=== PATIENT | female | born 1970 | race Caucasian/White ===

== ENCOUNTER 2020-12-04 23:28 | Emergency (ER) | payer OTHER ==
[~2020-12-04] VITALS: Ht 175.3 cm; Wt 81.6 kg
[2020-12-04 23:40] VITALS: BP 127/57
== END 2020-12-05 00:30 | disposition home or self-care (01) ==
LOC: ER 23:31
DX: L08.9 Local infection of the skin and subcutaneous tissue, unspecified (principal); Z59.0 Homelessness; Z90.710 Acquired absence of both cervix and uterus; Z98.890 Other specified postprocedural states

== ENCOUNTER 2021-09-04 10:29 | Emergency (ER) | payer OTHER ==
[~2021-09-04] VITALS: Ht 175.3 cm; Wt 81.6 kg
--- NOTE | 2021-09-04 10:38 | NUR ---
CALLED IN ED WAITNG ROOM. NO RESPONSE.
[2021-09-04] MEDS ORDERED: IV NS 0.9% 1,000 ML BAG IV ONE (11:00)
[2021-09-04] MEDS ORDERED: KETOROLAC TROMETHAMINE INJ 30 MG/ML VIAL IV ONE (11:00)
[2021-09-04] MEDS ORDERED: KETOROLAC TROMETHAMINE 15 MG/ML VIAL ONE (11:08)
--- NOTE | 2021-09-04 11:46 | NUR ---
PATIENT RESTING, NO DISTRESS NOTED. PT STATED PAIN HAS IMPROVED.
[2021-09-04 11:52] LABS: CALCIUM, SERUM 8.6 mg/dL (8.5-10.1); CREATININE 0.7 mg/dL (0.6-1.3); POTASSIUM 4.2 mmol/L (3.5-5.1)
[2021-09-04 11:54] LABS: ALBUMIN 3.8 g/dL (3.4-5.0); BILIRUBIN,DIRECT 0.1 mg/dL (0.0-0.2); BILIRUBIN,TOTAL 0.3 mg/dL (0.2-1.0); TOTAL PROTEIN, SERUM 7.3 g/dL (6.4-8.2)
--- NOTE | 2021-09-04 12:34 | NUR ---
Patient a/ox4, breathing even and unlabored, denies pain at this time. Patient discharged to home in stable condition. Written and verbal after care instructions given. Patient verbalizes understanding of instruction.
[2021-09-04 12:35] VITALS: BP 146/91
[2021-09-04 12:54] LABS: BASOPHILS % (AUTO) 0.5 % (0.0-2.0); EOSINOPHILS % (AUTO) 2.7 % (0.0-6.0); HEMATOCRIT 44 % (33-45); HEMOGLOBIN 14.8 g/dL (11.5-14.8); LYMPHOCYTES # (AUTO) 1.5 K/uL (0.8-4.8); LYMPHOCYTES % (AUTO) 17.4 % (20.0-44.0); MEAN CORPUSCULAR HGB CONC 34 g/dl (31.0-36.0); MEAN CORPUSCULAR VOLUME 92 fL (82-100); MONOCYTES # (AUTO) 0.4 K/uL (0.1-1.30); MONOCYTES % (AUTO) 4.9 % (2.0-12.0); NEUTROPHILS # (AUTO) 6.3 K/uL (1.8-8.9); NEUTROPHILS % (AUTO) 74.5 % (43.0-81.0); PLATELET COUNT (AUTO) 296 K/uL (150-450); RED BLOOD CELL COUNT(AUTO) 4.81 MIL/uL (4.0-5.2); WHITE BLOOD COUNT (AUTO) 8.5 K/uL (4.3-11.0)
== END 2021-09-04 12:35 | disposition home or self-care (01) ==
LOC: ER 10:31
DX: K80.50 Calculus of bile duct without cholangitis or cholecystitis without obstruction (principal); F10.10 Alcohol abuse, uncomplicated; F17.200 Nicotine dependence, unspecified, uncomplicated; Y90.9 Presence of alcohol in blood, level not specified; Z90.710 Acquired absence of both cervix and uterus; Z98.890 Other specified postprocedural states; Z59.00 Homelessness unspecified
CPT/HCPCS: 36415; 76705; 80048; 80076; 82962; 83690; 85025; 96374; 99284; J1885; J7030